=== PATIENT | male | born 2000 | race African-American/Black ===

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

== ENCOUNTER 2021-07-29 19:16 | Emergency (ER) | payer BC, OTHER ==
[~2021-07-29] VITALS: Ht 180.3 cm; Wt 72.1 kg
[~2021-07-29 19:16] MED LIST changes: +AZIT250T6 PO; +BENZ100C PO; +PRED50TA PO
--- NOTE | 2021-07-29 19:32 | PHYS DOC ---
Past History Past Medical History: Asthma, Other Additional Past Medical Histor: seasonal allergies, crohns Past Surgical History: No Surgical History Smoking: Non-smoker Alcohol Use: Occasionally Drug Use: Marijuana Adult General HPI HPI Patient is a 21-year-old male with a past medical history significant for Crohn's and asthma who presents to the emergency department with a chief complaint of feeling weird. States over the last day he is just about strange, felt foggy and had some tightness in his chest. States he did smoke some marijuana today shortly after the symptoms began which did not hurt or help. Denies any recent traumas, travels, illnesses, fevers, chest pain, shortness of breath, asthma exacerbations, abdominal pain, nausea, vomiting, diarrhea, hematuria or blood in the stool. Denies any numbness/weakness/tingling. Denies any headache or changes in vision, or trouble sitting, standing or walking. States he is eating and drinking normally for him. States he is making urine and stool normally for him. States he does take 10 mg of prednisone daily for his Crohn's. Review of Systems Review of Systems Review of systems otherwise unremarkable except noted in HPI Allergies Allergies Allergies Coded Allergies Type Severity Reaction Last Updated Verified lactose Allergy Unknown 03/19/19 Yes Physical Exam Physical Exam Constitutional: Well developed, well nourished, no acute distress, non-toxic appearance. [] HENT: Normocephalic, atraumatic, bilateral external ears normal, oropharynx moist, no oral exudates, nose normal. [] Eyes: PERRLA, EOMI, conjunctiva normal, no discharge. [] Neck: Normal range of motion, no tenderness, supple, no stridor. [] Cardiovascular:Heart rate regular rhythm, no murmur [] Lungs & Thorax: Bilateral breath sounds clear to auscultation [] Abdomen: Bowel sounds normal, soft, no tenderness, no masses, no pulsatile masses. [] Skin: Warm, dry, no erythema, no rash. [] Back: No tenderness, no CVA tenderness. [] Extremities: No tenderness, no cyanosis, no clubbing, ROM intact, no edema. [] Neurologic: Alert and oriented X 3, normal motor function, normal sensory function, no focal deficits noted. [] Psychologic: Affect normal, judgement normal, mood normal. [] EKG EKG [] Radiology/Procedures Radiology/Procedures [] Heart Score C/O Chest Pain: No Risk Factors: Risk Factors: DM, Current or recent (<one month) smoker, HTN, HLP, family history of CAD, obesity. Risk Scores: Risk Factors: DM, Current or recent (<one month) smoker, HTN, HLP, family history of CAD, obesity. Course & Med Decision Making Course & Med Decision Making Patient is a 21-year-old male who presents with a chief complaint of feeling weird Vital signs not concerning. Physical exam noted above. Patient placed on the monitor with IV access established. EKG noted above with ST and T abnormalities in anterior leads but normal troponin. Laboratory analysis not concerning. Chest x-ray not concerning. Discussed all findings with patient and recommended further evaluation and treatment in the emergency department with repeat EKGs and troponin over the next couple of hours. Patient states that he thinks he just smoked too much marijuana, and actually feels well now and would like to go on home. States he has an appointment with his primary care physician in the morning. Advised that this could be risky and gave strict return precautions to the ED. Patient grateful, verbalized understanding and agreed with plan of discharge. Dragon Disclaimer Dragon Disclaimer This electronic medical record was generated, in whole or in part, using a voice recognition dictation system. Departure Departure: Impression: Primary Impression: Fatigue Additional Impression: Chest tightness Disposition: 01 HOME / SELF CARE / HOMELESS Condition: IMPROVED Referrals: ITZEL RODRIGUEZ MD (PCP) Patient Instructions: Chest Pain (Nonspecific) Additional Instructions: Thank you for coming into the emergency department tonight and allowing us to take care of you. Please read the attached information carefully to go over things we discussed. It is very important that you call your primary care physician in the morning to update on your ED visit and set up a follow-up as soon as possible as we discussed. As we discussed, you are offered more time in the emergency department to continue observation, evaluation and treatment if n ecessary but you stated you felt ready to go on home. Please come back to the emergency department immediately if you have any new or concerning symptoms as we discussed. Problem Qualifiers QUYEN FOX MD Jul 29, 2021 19:32
[2021-07-29] MEDS ORDERED: IV RINGERS SOLUTION,LACTATED 1,000 ML IV ONE (20:00)
[2021-07-29] MEDS ORDERED: ONDANSETRON PF 4 MG/2 ML VIAL. IVP ONE (20:00)
[2021-07-29 20:06] LABS: BASO % 1 % (0-3); EOS % 0 % (0-3); HEMOGLOBIN 15.3 g/dL (13.0-17.5); LYMPH # 2.3 x10^3/uL (1.0-4.8); LYMPH % 25 % (24-48); MEAN CORPUSCULAR HEMOGLOBIN 27 pg (25-35); MEAN CORPUSCULAR HGB CONC 33 g/dL (31-37); MEAN CORPUSCULAR VOLUME 80 fL (79-100); MONO # 0.9 x10^3/uL (0.0-1.1); MONO % 10 % (0-9); NEUT % 65 % (31-73); PLATELET COUNT 282 x10^3/uL (140-400); RED BLOOD COUNT 5.73 x10^6/uL (4.30-5.70); RED CELL DISTRIBUTION WIDTH 15.1 % (11.5-14.5); WHITE BLOOD COUNT 9.3 x10^3/uL (4.0-11.0)
[2021-07-29 20:11] LABS: CALCIUM 9.5 mg/dL (8.5-10.1); GFR 115.3
[2021-07-29 20:17] LABS: ALBUMIN 4.1 g/dL (3.4-5.0); ALBUMIN/GLOBULIN RATIO 1.2 (1.0-1.7); TOTAL BILIRUBIN 1.1 mg/dL (0.2-1.0); TOTAL PROTEIN 7.5 g/dL (6.4-8.2)
--- NOTE | 2021-07-29 20:57 | RAD ---
AP chest x-ray HISTORY: Chest tightness. FINDINGS: Heart size normal. Mediastinal silhouette is normal. No pneumothorax, pulmonary opacities o r pleural effusions. The bones are unremarkable. IMPRESSION: No acute process. Electronically signed by: Royal Metcalf MD (07/29/2021 8:54 PM) [facility] [place]
[2021-07-29 21:26] VITALS: BP 117/70
[2021-07-29 21:29] LABS: BACTERIA,URINE 0 /HPF (0-FEW); BILIRUBIN,URINE SMALL (NEG); CLARITY,URINE CLEAR; COLOR,URINE YELLOW; GLUCOSE,URINE NEG (NEG); NITRITE,URINE NEG (NEG); RBC,URINE 0 /HPF (0-2); SQUAMOUS EPITHELIAL CELL,UR FEW /LPF; UROBILINOGEN,URINE 0.2 mg/dL (0.2 mg/dL); WBC,URINE OCC /HPF (0-4)
--- NOTE | 2021-07-30 03:10 | EKG ---
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
== END 2021-07-29 21:55 | disposition home or self-care (01) ==
LOC: ER 19:16
DX: R07.89 Other chest pain (principal); R53.83 Other fatigue; J45.909 Unspecified asthma, uncomplicated; K50.90 Crohn's disease, unspecified, without complications; Z91.011 Allergy to milk products
CPT/HCPCS: 36415; 71045; 80053; 81001; 83605; 84484; 85025; 93005; 96361; 96374; 99285; J2405; J7120

== ENCOUNTER → 2022-01-04 | Outpatient (CLI) | payer BC, OTHER | LOC: LAB 10:03 | PROVIDERS: ATTEND Internal Medicine Gastroenterology | DX: K50.90 Crohn's disease, unspecified, without complications (principal) | CPT/HCPCS: 36415 ==

== ENCOUNTER 2022-01-18 11:59 | Emergency (ER) | payer BC, OTHER ==
[~2022-01-18] VITALS: Ht 177.8 cm; Wt 66.2 kg
[2022-01-18] MEDS ORDERED: IV NORMAL SALINE 1,000ML 1,000 ML IV ONE (12:30)
[2022-01-18 12:56] LABS: BASO # 0.1 x10^3/uL (0.0-0.2); BASO % 1 % (0-3); EOS % 0 % (0-3); HEMATOCRIT 46.3 % (39.0-53.0); HEMOGLOBIN 15.2 g/dL (13.0-17.5); LYMPH % 9 % (24-48); MEAN CORPUSCULAR HEMOGLOBIN 26 pg (25-35); MEAN CORPUSCULAR HGB CONC 33 g/dL (31-37); MEAN CORPUSCULAR VOLUME 79 fL (79-100); MONO # 1.2 x10^3/uL (0.0-1.1); MONO % 11 % (0-9); NEUT # 8.2 x10^3uL (1.8-7.7); NEUT % 78 % (31-73); PLATELET COUNT 375 x10^3/uL (140-400); RED BLOOD COUNT 5.87 x10^6/uL (4.30-5.70); RED CELL DISTRIBUTION WIDTH 14.3 % (11.5-14.5); WHITE BLOOD COUNT 10.6 x10^3/uL (4.0-11.0)
[2022-01-18 12:59] LABS: CALCIUM 9.6 mg/dL (8.5-10.1); CREATININE 0.9 mg/dL (0.7-1.3); GFR 130.2; POTASSIUM 3.4 mmol/L (3.5-5.1)
--- NOTE | 2022-01-18 13:02 | PHYS DOC ---
Past History Past Medical History: Asthma, Other Additional Past Medical Histor: seasonal allergies, crohns, sports induced asthma Past Surgical History: Cholecystectomy Smoking: Non-smoker Alcohol Use: Occasionally Drug Use: Marijuana General Adult EDM: Chief Complaint: MULTIPLE COMPLAINTS HPI: HPI: 21-year-old male with a history of Crohn's disease and exercise-induced asthma presents with a chief complaint of chest pain. He reports coming to the emergency room this past July for similar complaints. Pain is described as substernal pressure that has been constantly present for the past week. He states the pain is an 8/10 at its worst but currently in the room a 5 /10. Patient stated that the pain improved over the weekend when he drank alcohol. Events that increase his anxiety and have made the pain worse. Denies leg swelling or calf tenderness. Denies history of PE/DVT. Denies trauma. Denies shortness of breath or cough. Denies fever or chills. Review of Systems: Review of Systems: Constitutional: Denies fever or chills Eyes: Denies eye pain ; Reports eye redness HENT: Denies nasal congestion or sore throat Respiratory: Denies cough; reports shortness of breath Cardiovascular: Reports chest pain and pressure GI: Denies abdominal pain, nausea, or vomiting : Denies dysuria or hematuria Musculoskeletal: Denies back pain or joint pain Integument: Denies rash or skin lesions Neurologic: Denies headache, focal weakness or sensory changes Complete systems were reviewed and found to be within normal limits, except as documented in this note. Current Medications: Current Meds: Current Medications Medications (Trade) Dose Ordered Sig/Iván Start Time Stop Time Status Last Admin Dose Admin Sodium Chloride 1,000 ml @ 1,000 mls/hr 1X ONCE 01/18/22 12:30 01/18/22 13:29 Allergies: Allergies: Allergies Coded Allergies Type Severity Reaction Last Updated Verified lactose Allergy Unknown 01/18/22 Yes Physical Exam: PE: Constitutional: Well developed, well nourished, mildly anxious, non-toxic appearance HENT: Normocephalic, atraumatic Eyes: PERRL, EOMI, conjunctival redness (reports marijuana use this morning) no discharge Neck: Normal range of motion, no tenderness, supple Lungs & Thorax: No respiratory distress, equal chest rise and fall Abdomen: Soft, no tenderness Skin: Warm, dry, no erythema, no rash Back: No tenderness, no CVA tenderness Extremities: No tenderness, ROM intact, no edema Neurologic: Alert and oriented X 3, normal motor function, normal sensory fu nction, no focal deficits noted Psychologic: Affect anxious, judgment normal Current Patient Data: Vital Signs: Vital Signs Date Time Temp Pulse Resp B/P (MAP) Pulse Ox O2 Delivery O2 Flow Rate FiO2 01/18/22 12:04 98.3 103 18 132/69 (90) 100 Room Air EKG: EKG: @13:05:42, NSR, at 96bpm, NO ST Elevation, QRS 96ms, QT/QTc 336/425ms Radiology/Procedures: Radiology/Procedures: PROCEDURE: CHEST AP ONLY XR CHEST 1V History: Chest pain. History of asthma. Comparison: 07/29/2021. Technique: AP radiograph of the chest. Findings: The lungs are adequately and symmetrically inflated. No airspace consolidation, pleural effusion or pneumothorax. The cardiomediastinal silhouette and pulmonary vasculature are within normal limits. No acute osseous abnormality. Soft tissues are unremarkable. Impression: 1. No acute cardiopulmonary process. Electronically signed by: Kristofer Reyes MD (01/18/2022 1:10 PM) [id number][] Heart Score: C/O Chest Pain: Yes HEART Score for Chest Pain: HEART Score for Chest Pain Response (Comments) Value History Slighlty/Non-Suspicious 0 ECG Normal 0 Age < 45 0 Risk Factors No Risk Factors 0 Troponin < Normal Limit 0 Total 0 Risk Factors: Risk Factors: DM, Current or recent (<one month) smoker, HTN, HLP, family history of CAD, obesity. Risk Scores: Score 0 - 3: 2.5% MACE over next 6 weeks - Discharge Home Score 4 - 6: 20.3% MACE over next 6 weeks - Admit for Clinical Observation Score 7 - 10: 72.7% MACE over next 6 weeks - Early Invasive Strategies Course & Med Decision Making: Course & Med Decision Making Pertinent Labs and Imaging studies reviewed. (See chart for details) Patient presents with a 1 week history of chest pains he also has a history of Crohn's disease taking oral prednisone 10 mg daily. Pertinent labs and imaging were ordered and reviewed and found to be noncontributory. Risk of PE was found to be minimal through PERC. Chemistry showed a mildly decreased potassium at 3.4 patient was given potassium supplement prior to discharge. EKG stable. Concerned that patient might have anxiety component. Discussed may need to follow with his PCP regarding this diagnosis and/or treatment. Patient stable for discharge with outpatient follow-up with PCP. Discussed findings and plan with patient and girlfriend, who acknowledge understanding and agreement. Dillan Disclaimer: Dillan Disclaimer: This electronic medical record was generated, in whole or in part, using a voice recognition dictation system. Departure Departure: Impression: Primary Impression: Atypical chest pain Additional Impression: Hypokalemia Disposition: HOME / SELF CARE / HOMELESS Condition: STABLE Referrals: ITZEL RODRIGUEZ MD (PCP) Patient Instructions: Anxiety and Panic Attacks, [id number], Chest Pain (Nonspecific), [id number], Hypokalemia, Potassium Content of Foods PERC Rule for PE PERC Rule for PE Response (Comments) Value Age > 50: No 0 HR > 100: No 0 Sa02 on room air <95%: No 0 Unilateral leg swelling: No 0 Hemoptysis: No 0 Recent surgery or trauma: No 0 Prior PE or DVT: No 0 Hormone use: No 0 Total 0 POSADAHILLARY DO Jan 18, 2022 13:02
[2022-01-18 13:04] LABS: ALBUMIN 3.6 g/dL (3.4-5.0); ALBUMIN/GLOBULIN RATIO 0.9 (1.0-1.7); TOTAL BILIRUBIN 0.6 mg/dL (0.2-1.0); TOTAL PROTEIN 7.4 g/dL (6.4-8.2)
[2022-01-18 13:12] LABS: MAGNESIUM 1.8 mg/dL (1.8-2.4)
--- NOTE | 2022-01-18 13:12 | RAD ---
XR CHEST 1V History: Chest pain. History of asthma. Comparison: 07/29/2021. Technique: AP radiograph of the chest. Findings: The lungs are adequately and symmetrically inflated. No airspace consolidation, pleural effusion or p neumothorax. The cardiomediastinal silhouette and pulmonary vasculature are within normal limits. No acute osseous abnormality. Soft tissues are unremarkable. Impression: 1. No acute cardiopulmonary process. Electronically signed by: Kristofer Reyes MD (01/18/2022 1:10 PM) [id number]
[2022-01-18 13:28] LABS: BACTERIA,URINE 0 /HPF (0-FEW); BARBITURATES NEG (NEG); BENZODIAZEPINES NEG (NEG); CANNABINOIDS POS (NEG); CLARITY,URINE CLEAR; COCAINE NEG (NEG); COLOR,URINE YELLOW; GLUCOSE,URINE NEG (NEG); METHADONE NEG (NEG); NITRITE,URINE NEG (NEG); OPIATES NEG (NEG); PHENCYCLIDINE NEG (NEG); RBC,URINE 0 /HPF (0-2); UROBILINOGEN,URINE 0.2 mg/dL (0.2 mg/dL); WBC,URINE 0 /HPF (0-4)
[2022-01-18 13:29] LABS: AMPHETAMINE/METHAMPHETAMINE NEG (NEG)
[2022-01-18] MEDS ORDERED: POTASSIUM CHLORIDE 20 MEQ TABLET.ER. PO ONE (14:00)
[2022-01-18 14:10] VITALS: BP 123/58
--- NOTE | 2022-01-18 19:32 | EKG ---
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
== END 2022-01-18 14:19 | disposition home or self-care (01) ==
LOC: ER 11:59
DX: E87.6 Hypokalemia (principal); R07.2 Precordial pain; J45.909 Unspecified asthma, uncomplicated; Z91.011 Allergy to milk products
CPT/HCPCS: 36415; 71045; 80053; 80307; 81001; 82553; 83690; 83735; 84484; 85025; 93005; 96360; 96361; 99285; J7030